=== PATIENT | male | born 1955 | race Caucasian/White ===

== ENCOUNTER 2019-02-27 13:30 | Emergency (ER) | payer MEDICARE, OTHER ==
[~2019-02-27] VITALS: Ht 193 cm; Wt 85.9 kg
[~2019-02-27 13:30] MED LIST: CEPH-368 PO; SULF1TAB24 PO
[2019-02-27 13:51] VITALS: BP 105/72
== END 2019-02-27 14:57 | disposition home or self-care (01) ==
LOC: ED 14:50
DX: S60.211A Contusion of right wrist, initial encounter (principal); M19.031 Primary osteoarthritis, right wrist; F10.10 Alcohol abuse, uncomplicated; Z72.9 Problem related to lifestyle, unspecified; W50.1XXA Accidental kick by another person, initial encounter; Y93.89 Activity, other specified; Y92.410 Unspecified street and highway as the place of occurrence of the external cause; Y99.8 Other external cause status
CPT/HCPCS: 29125; 99283

== ENCOUNTER 2019-03-10 14:20 | Emergency (ER) | payer MEDICARE ==
[~2019-03-10] VITALS: Ht 193 cm; Wt 86.0 kg
[2019-03-10 14:29] VITALS: BP 118/78
== END 2019-03-10 16:03 | disposition home or self-care (01) ==
LOC: ED 14:45
DX: S83.91XA Sprain of unspecified site of right knee, initial encounter (principal); M25.461 Effusion, right knee; Z72.89 Other problems related to lifestyle; Z86.14 Personal history of Methicillin resistant Staphylococcus aureus infection; X50.1XXA Overexertion from prolonged static or awkward postures, initial encounter; Y93.89 Activity, other specified; Y92.89 Other specified places as the place of occurrence of the external cause; Y99.8 Other external cause status
CPT/HCPCS: 29505; 99283